=== PATIENT | male | born 1955 | race Caucasian/White ===

== ENCOUNTER 2018-04-19 10:22 | Day surgery (SDC) | payer OTHER ==
[~2018-04-19] VITALS: Ht 185.4 cm; Wt 133.8 kg
[~2018-04-19 10:22] MED LIST: BUSP15 PO; HYDCHL12.5 PO; Norco 10-325 T1 EACH PO; OMEPRAZOLE MAGN20 MG PO; PROP120ER PO; Prozac20 MG PO; ROPI.25 PO; SALONPAS PATCH1 EACH TOP; Simvastatin20 MG PO; ZOLP10 PO; ZYRTEC10 M1 PO
== END 2018-04-19 12:42 | disposition home or self-care (01) ==
LOC: ORSCSDS 10:22
PROVIDERS: Internal Medicine Gastroenterology
PROC: 0DBP8ZX Excision of Rectum, Via Natural or Artificial Opening Endoscopic, Diagnostic (ICD-10-PCS; principal; 2018-04-19 11:45)
PROC: 0DBK8ZX Excision of Ascending Colon, Via Natural or Artificial Opening Endoscopic, Diagnostic (ICD-10-PCS; principal; 2018-04-19 11:45)
PROC: 0DBB8ZX Excision of Ileum, Via Natural or Artificial Opening Endoscopic, Diagnostic (ICD-10-PCS; principal; 2018-04-19 11:45)
PROC: 0DBM8ZX Excision of Descending Colon, Via Natural or Artificial Opening Endoscopic, Diagnostic (ICD-10-PCS; principal; 2018-04-19 11:45)
PROC: 0DBN8ZX Excision of Sigmoid Colon, Via Natural or Artificial Opening Endoscopic, Diagnostic (ICD-10-PCS; principal; 2018-04-19 11:45)
DX: Z12.11 Encounter for screening for malignant neoplasm of colon (principal); D12.4 Benign neoplasm of descending colon; D12.2 Benign neoplasm of ascending colon; D12.0 Benign neoplasm of cecum; K63.5 Polyp of colon; K62.1 Rectal polyp; I10 Essential (primary) hypertension; G47.33 Obstructive sleep apnea (adult) (pediatric); Z79.899 Other long term (current) drug therapy; E66.01 Morbid (severe) obesity due to excess calories; Z68.38 Body mass index [BMI] 38.0-38.9, adult
CPT/HCPCS: 88305; J7120

== ENCOUNTER 2020-11-20 02:14 | Observation (INO) | payer MEDICARE, OTHER ==
[~2020-11-20] VITALS: Ht 185.4 cm; Wt 149.7 kg
[2020-11-20] MEDS ORDERED: ARTIFICIAL TEAR15 M2 BOTHEYES (02:33)
[2020-11-20] MEDS ORDERED: ZADITOR5 M1 BOTHEYES (02:33)
[2020-11-20] MEDS ORDERED: EDEX20 MCG IC (02:33)
[2020-11-20] MEDS ORDERED: Cetirizine HCl10 MG PO (02:34)
[2020-11-20 08:01] LABS: BASOPHILS ABSOLUTE AUTO 0.06 K/mm3 (0.00-0.23); BASOPHILS PERCENT AUTO 1 % (0-2); EOSINOPHILS ABSOLUTE AUTO 0.24 K/mm3 (0.00-0.68); EOSINOPHILS PERCENT AUTO 3 % (0-6); Hematocrit 42.9 % (37.0-53.0); Hemoglobin 14.6 g/dL (13.5-17.5); IMMATURE GRAN ABSOLUTE AUTO 0.02 K/mm3 (0.00-0.10); IMMATURE GRAN PERCENT AUTO 0 % (0-1); LYMPHOCYTES ABSOLUTE AUTO 2.26 K/mm3 (0.84-5.20); LYMPHOCYTES PERCENT AUTO 26 % (21-46); MONOCYTES PERCENT AUTO 9 % (4-13); Mean Corpuscular HGB 31.9 pg (26.0-34.0); Mean Corpuscular Volume 94 fL (80-100); Mean Platelet Volume 10.3 fL (9.1-12.4); NEUTROPHILS ABSOLUTE AUTO 5.45 K/mm3 (1.96-9.15); NEUTROPHILS PERCENT AUTO 62 % (41-73); Platelet Count 213 K/mm3 (150-400); RDW Standard Deviation 44.3 fL (35.1-46.3); Red Blood Cell Count 4.58 M/mm3 (4.30-5.90); White Blood Cell Count 8.83 K/mm3 (4.00-11.30)
[2020-11-20 08:25] LABS: Acetaminophen, Random <2.0 ug/mL (10.0-30.0); Alanine Aminotransfer (ALT/SGP 28 U/L (12-78); Albumin, Blood 3.8 g/dL (3.4-5.0); Alk Phos 54 U/L (50-136); Anion Gap 6 mmol/L (6-16); Aspartate Aminotrans (AST/SGOT 15 U/L (12-37); Bilirubin, Total 0.3 mg/dL (0.1-1.0); Blood Urea Nitrogen 16 mg/dL (8-24); Bun/Creatinine Ratio 16.8 (12.0-20.0); CO2, Blood 27 mmol/L (21-32); Calcium, Blood 9.6 mg/dL (8.5-10.1); Chloride, Blood 106 mmol/L (98-108); Creatinine, Blood 0.95 mg/dL (0.60-1.20); Ethanol (Alcohol), Blood, Med <3 mg/dL; Globulin, Blood 3.8 g/dL (2.2-4.0); Glomerular Filtration Rate >60 (60-); Glucose, Blood 124 mg/dL (70-99); Potassium, Blood 4.3 mmol/L (3.5-5.5); Salicylate <1.7 mg/dL (2.8-20.0); Sodium, Blood 139 mmol/L (136-145); Total Protein, Blood 7.6 g/dL (6.4-8.2)
[2020-11-20 08:27] LABS: Source, Urine Clean Catch
[2020-11-20 08:30] LABS: Appearance, Urine Clear (Clear); Bilirubin, Urine Neg (Neg); Blood, Urine Neg (Neg); Glucose Qualitative, Urine Neg (Neg); Ketones, Urine Neg (Neg); Leukocyte Esterase, Urine Neg (Neg); Nitrite, Urine Neg (Neg); Protein, Urine Neg (Neg); Specific Gravity, Urine 1.015 (1.003-1.022); Urobilinogen, Urine NORM (Normal); pH, Urine 6.5 (5.0-8.0)
[2020-11-20 08:45] LABS: U Amphetamine Screen Not Detected; U Barbituate Screen Not Detected; U Benzodiazapine Screen Not Detected; U Buprenorphine Screen Not Detected; U Cannabinoids Screen Not Detected; U Cocaine Screen Not Detected; U Methadone Screen Not Detected; U Methamphetamine Screen Not Detected; U Opiates Screen Not Detected; U Oxycodone Screen Not Detected; U Phencyclidine Screen Not Detected; U Propoxyphene Screen Not Detected
[2020-11-20 08:48] LABS: Color, Urine Yellow (P-Yellow)
[2020-11-20 08:50] LABS: SARS-Cov-2 (COVID-19) PCR, MMC NEGATIVE (NEGATIVE)
[2020-11-20] MEDS ORDERED: PROZAC40 MG PO (11:55)
[2020-11-20] MEDS ORDERED: ROPINIROLE HCL PO (11:55)
[2020-11-20] MEDS ORDERED: PRAZ2 PO (11:55)
[2020-11-20] MEDS ORDERED: FINA5 PO (11:56)
[2020-11-20] MEDS ORDERED: TAMSULOSIN HCL0.4 M1 PO (11:56)
[2020-11-20] MEDS ORDERED: NASAL DECONGEST30 ML (11:59)
== END 2020-11-20 14:58 | disposition home or self-care (01) ==
LOC: ER 02:14 → EOR 07:46
PROVIDERS: ADMIT Emergency Medicine
DX: F43.10 Post-traumatic stress disorder, unspecified (principal); F39 Unspecified mood [affective] disorder; Z88.8 Allergy status to other drugs, medicaments and biological substances; Z91.040 Latex allergy status; Z79.899 Other long term (current) drug therapy; Z20.822 Contact with and (suspected) exposure to COVID-19
CPT/HCPCS: 80053; 81003; 85025; 99285; A9270; G0378; G0480; U0004

== ENCOUNTER 2023-09-05 17:59 | Emergency (ER) | payer MEDICARE, OTHER ==
[~2023-09-05] VITALS: Ht 185.4 cm; Wt 104.3 kg
[~2023-09-05 17:59] MED LIST changes: +ARTIFICIAL TEAR15 M2 BOTHEYES; +Cetirizine HCl10 MG PO; +EDEX20 MCG IC; +FINA5 PO; +NASAL DECONGEST30 ML; +PRAZ2 PO; +PROZAC40 MG PO; +ROPINIROLE HCL PO; +TAMSULOSIN HCL0.4 M1 PO; +ZADITOR5 M1 BOTHEYES
[2023-09-05 18:10] VITALS: BP 135/71
[2023-09-05 19:34] LABS: BASOPHILS ABSOLUTE AUTO 0.05 K/mm3 (0.00-0.23); BASOPHILS PERCENT AUTO 1 % (0-2); EOSINOPHILS ABSOLUTE AUTO 0.13 K/mm3 (0.00-0.68); EOSINOPHILS PERCENT AUTO 2 % (0-6); Hemoglobin 14.5 g/dL (13.5-17.5); IMMATURE GRAN ABSOLUTE AUTO 0.02 K/mm3 (0.00-0.10); IMMATURE GRAN PERCENT AUTO 0 % (0-1); LYMPHOCYTES ABSOLUTE AUTO 0.69 K/mm3 (0.84-5.20); LYMPHOCYTES PERCENT AUTO 10 % (21-46); MONOCYTES ABSOLUTE AUTO 0.89 K/mm3 (0.16-1.47); MONOCYTES PERCENT AUTO 13 % (4-13); Mean Corpuscular HGB 31.6 pg (26.0-34.0); Mean Corpuscular HGB Conc 33.7 g/dL (31.5-36.5); Mean Corpuscular Volume 94 fL (80-100); Mean Platelet Volume 9.8 fL (9.1-12.4); NEUTROPHILS ABSOLUTE AUTO 4.98 K/mm3 (1.96-9.15); NEUTROPHILS PERCENT AUTO 74 % (41-73); Platelet Count 161 K/mm3 (150-400); RDW Standard Deviation 44.3 fL (35.1-46.3); Red Blood Cell Count 4.59 M/mm3 (4.30-5.90); White Blood Cell Count 6.76 K/mm3 (4.00-11.30)
[2023-09-05 20:03] LABS: Albumin, Blood 4.1 g/dL (3.4-5.0); Albumin/Globulin Ratio 1.1 (0.8-1.8); Bilirubin, Total 0.4 mg/dL (0.1-1.0); Bun/Creatinine Ratio 19.8 (12.0-20.0); Calcium, Blood 9.7 mg/dL (8.5-10.1); Creatinine, Blood 0.91 mg/dL (0.60-1.20); Globulin, Blood 3.6 g/dL (2.2-4.0); Potassium, Blood 4.1 mmol/L (3.5-5.5); Total Protein, Blood 7.7 g/dL (6.4-8.2)
== END 2023-09-05 20:30 | disposition home or self-care (01) ==
LOC: ER 17:59
PROVIDERS: Student in an Organized Health Care Education/Training Program
DX: U07.1 COVID-19 (principal); J45.909 Unspecified asthma, uncomplicated; F43.10 Post-traumatic stress disorder, unspecified; Z79.51 Long term (current) use of inhaled steroids; Z79.899 Other long term (current) drug therapy; Z91.040 Latex allergy status; Z88.8 Allergy status to other drugs, medicaments and biological substances
CPT/HCPCS: 71046; 80053; 83880; 85025; 93005; 93010; 99285-25

== ENCOUNTER 2025-02-12 10:20 | Emergency (ER) | payer MEDICARE, OTHER ==
[~2025-02-12] VITALS: Ht 185.4 cm; Wt 151.1 kg
[~2025-02-12 10:20] MED LIST changes: +OMEP20ER PO; -OMEPRAZOLE MAGN20 MG PO
[2025-02-12] MEDS ORDERED: AZELASTINE137 MCG/01 (10:42)
[2025-02-12] MEDS ORDERED: ZOCOR20 MG PO (10:43)
[2025-02-12 10:45] LABS: BASOPHILS ABSOLUTE AUTO 0.05 K/mm3 (0.00-0.23); BASOPHILS PERCENT AUTO 1 % (0-2); EOSINOPHILS ABSOLUTE AUTO 0.15 K/mm3 (0.00-0.68); EOSINOPHILS PERCENT AUTO 2 % (0-6); Hematocrit 34.4 % (37.0-53.0); Hemoglobin 11.5 g/dL (13.5-17.5); IMMATURE GRAN ABSOLUTE AUTO 0.03 K/mm3 (0.00-0.10); IMMATURE GRAN PERCENT AUTO 0 % (0-1); LYMPHOCYTES ABSOLUTE AUTO 1.45 K/mm3 (0.84-5.20); LYMPHOCYTES PERCENT AUTO 18 % (21-46); MONOCYTES ABSOLUTE AUTO 0.66 K/mm3 (0.16-1.47); MONOCYTES PERCENT AUTO 8 % (4-13); Mean Corpuscular HGB Conc 33.4 g/dL (31.5-36.5); Mean Corpuscular Volume 95 fL (80-100); NEUTROPHILS ABSOLUTE AUTO 5.83 K/mm3 (1.96-9.15); NEUTROPHILS PERCENT AUTO 71 % (41-73); NRBC ABSOLUTE 0.00 K/mm3 (0.00-0.02); NRBC Auto 0.0 /100 WBC (0.0-0.2); Platelet Count 217 K/mm3 (150-400); RDW Coefficient Variation 13.3 % (11.7-14.2); RDW Standard Deviation 45.2 fL (35.1-46.3)
[2025-02-12] MEDS ORDERED: ALBU90OI INH (10:45)
[2025-02-12 11:10] LABS: Alanine Aminotransfer (ALT/SGP 16.0 U/L (12-78); Albumin, Blood 3.0 g/dL (3.4-5.0); Albumin/Globulin Ratio 0.8 (0.8-1.8); Anion Gap 8.0 mmol/L (3-11); Aspartate Aminotrans (AST/SGOT 15.0 U/L (12-37); Bilirubin, Total 0.4 mg/dL (0.1-1.0); Blood Urea Nitrogen 13.0 mg/dL (8-24); CO2, Blood 26.0 mmol/L (21-32); Calcium, Blood 8.9 mg/dL (8.5-10.1); Chloride, Blood 108.0 mmol/L (98-108); Creatinine, Blood 0.77 mg/dL (0.60-1.20); Globulin, Blood 3.7 g/dL (2.2-4.0); Glucose, Blood 131.0 mg/dL (70-99); Potassium, Blood 3.8 mmol/L (3.5-5.5); Sodium, Blood 138.0 mmol/L (136-145); Total Protein, Blood 6.7 g/dL (6.4-8.2)
[2025-02-12 12:30] VITALS: BP 154/69
[2025-02-12] MEDS ORDERED: PRED20 PO (12:34)
--- NOTE | 2025-02-12 15:23 | NUR ---
The patient called out to me from his room. He told me that I was their bean snipper for several visits before his and wanted me to know how much it was appreciated. He then tells me about his struggle with the grief and her dtr is present in the room nad is tearful as well. He then talks about his present chest pains and the plan of care. I provided therapeutic listening, grief support and prayer. The patient and his step dtr voice appreciation fo rthe visit and showed signs of being comforted and of having greater peace.
== END 2025-02-12 13:05 | disposition home or self-care (01) ==
LOC: ER 10:20
PROVIDERS: Student in an Organized Health Care Education/Training Program
DX: R06.02 Shortness of breath (principal); J45.909 Unspecified asthma, uncomplicated; K21.9 Gastro-esophageal reflux disease without esophagitis; Z88.8 Allergy status to other drugs, medicaments and biological substances; Z91.040 Latex allergy status; Z79.899 Other long term (current) drug therapy
CPT/HCPCS: 71046; 80053; 84484; 85025; 93005; 93010